=== PATIENT | female | born 1935 | race Caucasian/White ===

== ENCOUNTER → 2017-03-29 | Outpatient (CLI) | payer OTHER, MEDICARE ==
[~2017-03-29] MED LIST: CRG25 PO; DVNC160 PO; INSPRA PO
--- NOTE | 2017-03-29 10:34 | DIAGNOSTIC IMAGING REPORT ---
L FOOT MIN 3 VIEWS CLINICAL HISTORY: LEFT FOOT PAIN pain COMPARISON: None. 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 Bunion deformity distal first metatarsal. Mild hallux valgus configuration. Moderate degenerative change interphalangeal joints. No evidence for subluxation on the current study. Small heel spur. There is no evidence for soft tissue swelling. IMPRESSION: Moderate rather significant degenerative change. Bunion deformity first metatarsal with a hallux valgus configuration. The above report was generated using voice recognition software. It may contain grammatical, syntax or spelling errors. Electronically signed by: Louis Escobedo M.D. 03/29/2017 10:33 AM Dictated Date/Time: 03/29/2017 10:31 AM
== END | disposition home or self-care (01) ==
LOC: C.RDSM 10:25
PROVIDERS: ATTEND Physician Assistant
DX: M79.672 Pain in left foot (principal)